=== PATIENT | female | born 1945 | race Caucasian/White ===

== ENCOUNTER 2022-12-26 13:53 | Emergency (ER) | payer MEDICARE, SELFPAY ==
[2022-12-26 14:00] VITALS: BP 137/70; PULSE 72; RESP 16; TEMP 37.2; O2SAT 98; BMI 23.7
--- NOTE | 2022-12-26 14:09 | DI.RAD.S_ITS ---
PROCEDURE: XR HAND RT MIN 3V INDICATIONS: crush injury TECHNIQUE: 3 views of the hand(s) acquired. COMPARISON: None. FINDINGS: Bones: Multi part minimally displaced fracture of the proximal phalanx of the 5th finger and avulsion fracture of the insertion of the extensor tendon at the distal phalanx. Soft tissues: No suspicious soft tissue calcifications. IMPRESSION: Fracture of the proximal phalanx of the 5th finger and avulsion fracture of the distal phalanx of the 5th finger. Dictated by: Juan Jose Vera M.D. on 12/26/2022 at 13:51 Approved by: Juan Jose Vera M.D. on 12/26/2022 at 13:52
--- NOTE | 2022-12-26 14:09 | DI.RAD.S_ITS ---
PROCEDURE: XR FINGER RT MIN 2V INDICATIONS: crush injury TECHNIQUE: AP hand, 2 views of the right 5th finger(s) acquired. COMPARISON: None. FINDINGS: Bones: The right 5th finger demonstrates a minimally displaced multipart fracture of the proximal phalanx and an avulsion fracture of the dorsal extensor tendon insertion at the DIP. Soft tissues: No suspicious soft tissue calcifications. IMPRESSION: Fracture of the proximal phalanx of the right 5th finger and avulsion fracture of the distal phalanx of the 5th finger. Dictated by: Juan Jose Vera M.D. on 12/26/2022 at 13:49 Approved by: Juan Jose Vera M.D. on 12/26/2022 at 13:51
[2022-12-26] MEDS: TET,DIPH,PERTUSS(ACELL),VAC/PF 0.5 ML SYRINGE IM (15:54)
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
[2022-12-26] MEDS: OXYCODONE/ACETAMINOPHEN 5/325 TABLET 1 TAB PO (16:39)
[2022-12-26] MEDS: cephALEXin 250 MG CAPSULE 500 MG PO (17:04)
[2022-12-26] MEDS: LIDOCAINE 1% (PF) 5 ML INJ (17:31)
== END 2022-12-26 18:00 | disposition home or self-care (01) ==
PROVIDERS: Emergency Provider Registered Nurse
DX: S62.616B Displaced fracture of proximal phalanx of right little finger, initial encounter for open fracture (principal); Z23 Encounter for immunization; W31.89XA Contact with other specified machinery, initial encounter
CPT/HCPCS: 12002; 73130; 73140; 90471; 99283; 90715